=== PATIENT | male | born 1985 | race Caucasian/White ===

== ENCOUNTER → 2020-08-06 | Outpatient (REF) | LOC: LAB 09:30 | DX: Z02.83 Encounter for blood-alcohol and blood-drug test (principal) ==

== ENCOUNTER → 2023-05-29 | Outpatient (CLI) | payer BC ==
[~2023-05-29] MED LIST: ALBUTEROL SULF6.7 GM IH; CYCLOBENZAPRINE10 M1 PO; DESYREL50 MG PO; LAMOTRIGINE25 M1 PO
== END ==
LOC: RAD 12:02
DX: M25.562 Pain in left knee (principal)